=== PATIENT | female | born 1945 | race Caucasian/White ===

== ENCOUNTER 2021-12-25 11:28 | Inpatient (IN) | payer OTHER ==
[~2021-12-25] VITALS: Ht 152.4 cm; Wt 65.7 kg
[2021-12-25 13:30] LABS: Albumin 3.2 g/dL (3.4-5.0); Calcium 8.9 mg/dL (8.5-10.1); Potassium 4.1 mmol/L (3.5-5.1)
[2021-12-25 13:33] LABS: Hematocrit 20.2 % (36.0-46.0); Mean Corpuscular Hemoglobin 34.4 pg (28.0-32.0); Mean Corpuscular Hgb Conc. 34.7 g/dL (32.0-36.0); Mean Corpuscular Volume 99.3 fL (80.0-100.0); Red Blood Cells 2.03 10^6/uL (4.0-5.20)
[2021-12-25 13:36] LABS: BUN/Creatinine Ratio 33.1; Bilirubin, Total 0.9 mg/dL (0.2-1.0); Total Protein 6.7 g/dL (6.4-8.2)
[2021-12-25 13:38] LABS: Red Cell Distribution Width 20.2 % (11.8-14.3); White Blood Cell 1.8 10^3/uL (4.4-10.8)
[2021-12-25 13:41] LABS: Basophils % (manual) 0 (0.0-2.0); Blast Cells 0; Eosinophils % (manual) 0 (0-7); Myelocytes % 0; Reactive Lymphocytes 0
[2021-12-25] MEDS ORDERED: IOHEXOL 300 MG/ML 100ML BOTTLE IJ ONE (14:10)
[2021-12-25 14:56] LABS: Band Neutrophils % (manual) 5; Lymphocytes % (manual) 79 (10.0-50.0); Metamyelocytes % 1; Monocytes % (manual) 10 (0-12); Promyelocytes % 1
[2021-12-25] MEDS ORDERED: SODIUM CHLORIDE 0.9% 1,000 ML IV ONE (20:15)
[2021-12-25] MEDS ORDERED: ACETAMINOPHEN 325 MG TAB PO ONE (20:45)
[2021-12-25 22:06] LABS: INR 1.03 (0.9-1.15)
[2021-12-25] MEDS ORDERED: DOCUSATE SOD 100 MG CAP PO PRN (22:45)
[2021-12-25] MEDS ORDERED: DEXTROSE (50%) 50ML SYRG IV PRN (22:45)
[2021-12-25] MEDS ORDERED: ONDANSETRON HCL 4 MG/2 ML VIAL IV PRN (22:45)
[2021-12-25] MEDS ORDERED: hydrALAZINE HCL 20 MG/ML VL IV PRN (23:15)
[2021-12-26] VITALS (8 sets, daily range): BP systolic 94–124; BP diastolic 36–63
[2021-12-26] MEDS ORDERED: MORPHINE SULFATE INJ 2 MG/ml SYRG IV PRN
[2021-12-26] MEDS ORDERED: NITROGLYCERIN 0.4 MG SL TAB SL PRN
[2021-12-26 01:48] LABS: Urine Bacteria FEW /hpf (None Seen); Urine Blood Negative /uL (Negative); Urine Specific Gravity 1.023 (1.001-1.035); Urine WBC 28 /hpf (0 - 5)
[2021-12-26] MEDS ORDERED: ALBUMIN 25% 100 ML IV ONE (05:30)
[2021-12-26] MEDS: SODIUM CHLOR 0.9% PF (SALINE LOCK) 10ML VIAL/SYR IV SCH ×3 (06:01→22:01)
[2021-12-26 06:18] LABS: Hematocrit 17.2 % (36.0-46.0); Mean Corpuscular Hemoglobin 34.2 pg (28.0-32.0); Mean Corpuscular Hgb Conc. 34.5 g/dL (32.0-36.0); Mean Corpuscular Volume 99.1 fL (80.0-100.0); Red Blood Cells 1.73 10^6/uL (4.0-5.20)
[2021-12-26] MEDS: ACETAMINOPHEN 325 MG TAB PO PRN ×3 (06:21→21:54)
[2021-12-26 06:36] LABS: Hemoglobin 5.9 g/dL (12.2-16.2); Red Cell Distribution Width 20.2 % (11.8-14.3); White Blood Cell 1.6 10^3/uL (4.4-10.8)
[2021-12-26 06:38] LABS: Metamyelocytes % 0; Myelocytes % 0; Promyelocytes % 0; Reactive Lymphocytes 0
[2021-12-26 06:40] LABS: Albumin 2.5 g/dL (3.4-5.0); BUN/Creatinine Ratio 40.2; Calcium 8.6 mg/dL (8.5-10.1); Potassium 3.7 mmol/L (3.5-5.1)
[2021-12-26 06:43] LABS: Bilirubin, Total 0.6 mg/dL (0.2-1.0); Total Protein 6.1 g/dL (6.4-8.2)
[2021-12-26] MEDS: MULTIPLE VITAMIN TAB PO SCH (08:42)
[2021-12-26] MEDS: ACCU-CHEK COMFORT CURVE STRIP VI SCH ×4 (08:46→21:39)
[2021-12-26] MEDS: InsuLIN REG 1unit/0.01ml Soln (100units/ml) SC SCH ×4 (08:47→21:39)
[2021-12-26] MEDS ORDERED: FAMOTIDINE (10MG/ML) 2ML VL IV SCH (10:00)
[2021-12-26] MEDS ORDERED: ASPirin 81 mg TAB PO SCH (10:00)
[2021-12-26] MEDS ORDERED: ASPI325T4 PO (11:00)
[2021-12-26] MEDS ORDERED: ATOR20TA50 PO (11:01)
[2021-12-26] MEDS ORDERED: METF-370 PO ×2 (11:01→16:26)
[2021-12-26] MEDS ORDERED: NICOTINE 21MG/24 HR TOPICAL PATCH TD ONE (12:15)
[2021-12-26 14:52] LABS: % Iron Saturation 35.8 % (15-50)
[2021-12-26 15:04] LABS: Folate (Folic Acid) 14.75 ng/mL (5.38-24)
[2021-12-26 15:35] LABS: Band Neutrophils % (manual) 1; Basophils % (manual) 1 (0.0-2.0); Blast Cells 3; Eosinophils % (manual) 5 (0-7); Lymphocytes % (manual) 77 (10.0-50.0); Monocytes % (manual) 9 (0-12)
[2021-12-26] MEDS ORDERED: ROSU5TAB5 PO (16:26)
[2021-12-26] MEDS ORDERED: CHOL20007 PO (16:26)
[2021-12-26] MEDS ORDERED: CYA100I IM (16:26)
[2021-12-26] MEDS ORDERED: ASCO500T11 PO (16:26)
[2021-12-26] MEDS ORDERED: MULT-688 PO (16:26)
[2021-12-26] MEDS ORDERED: ASPI-543 PO (16:26)
[2021-12-26] MEDS ORDERED: ALBU2TAB4 PO (16:26)
[2021-12-26] MEDS ORDERED: CALC667C PO (16:26)
[2021-12-26] MEDS: PANTOPRAZOLE 40 MG/10 ML VIAL INJ IV SCH (21:53)
[2021-12-27 05:00] VITALS: BP 121/52
[2021-12-27] MEDS: ACCU-CHEK COMFORT CURVE STRIP VI SCH ×4 (06:05→22:00)
[2021-12-27] MEDS: SODIUM CHLOR 0.9% PF (SALINE LOCK) 10ML VIAL/SYR IV SCH ×3 (06:05→22:00)
[2021-12-27] MEDS: InsuLIN REG 1unit/0.01ml Soln (100units/ml) SC SCH ×4 (06:15→22:49)
[2021-12-27 06:25] LABS: Red Blood Cells 2.15 10^6/uL (4.0-5.20)
[2021-12-27 06:27] LABS: Hematocrit 21.2 % (36.0-46.0); Hemoglobin 7.8 g/dL (12.2-16.2); Mean Corpuscular Hemoglobin 36.5 pg (28.0-32.0); Mean Corpuscular Volume 98.5 fL (80.0-100.0); Red Cell Distribution Width 19.3 % (11.8-14.3)
[2021-12-27 06:48] LABS: White Blood Cell 1.5 10^3/uL (4.4-10.8)
[2021-12-27 06:50] LABS: Basophils % (manual) 0 (0.0-2.0); Promyelocytes % 0
[2021-12-27 07:04] LABS: BUN/Creatinine Ratio 30.9; Potassium 3.6 mmol/L (3.5-5.1)
[2021-12-27 08:21] LABS: Band Neutrophils % (manual) 2; Blast Cells 3; Eosinophils % (manual) 2 (0-7); Lymphocytes % (manual) 81 (10.0-50.0); Metamyelocytes % 1; Monocytes % (manual) 6 (0-12); Myelocytes % 1; Reactive Lymphocytes 1
[2021-12-27] MEDS: PANTOPRAZOLE 40 MG/10 ML VIAL INJ IV SCH ×2 (08:29→22:48)
[2021-12-27] MEDS: MULTIPLE VITAMIN TAB PO SCH (08:29)
[2021-12-27] MEDS: NICOTINE 21MG/24 HR TOPICAL PATCH TD SCH (08:30)
[2021-12-27 09:00] VITALS: BP 110/36
[2021-12-27] MEDS: HYDROcodone-ACET 5/325MG TAB PO PRN ×2 (10:14→18:53)
[2021-12-27 13:00] VITALS: BP 100/51
[2021-12-27 17:00] VITALS: BP 115/49
[2021-12-27 22:00] VITALS: BP 105/41
[2021-12-28] VITALS (9 sets, daily range): BP systolic 98–133; BP diastolic 37–68
[2021-12-28] MEDS: SODIUM CHLOR 0.9% PF (SALINE LOCK) 10ML VIAL/SYR IV SCH ×3 (06:24→21:45)
[2021-12-28] MEDS: InsuLIN REG 1unit/0.01ml Soln (100units/ml) SC SCH ×4 (06:24→22:00)
[2021-12-28] MEDS: ACCU-CHEK COMFORT CURVE STRIP VI SCH ×4 (06:25→22:00)
[2021-12-28 06:34] LABS: Hematocrit 19.2 % (36.0-46.0); Mean Corpuscular Hemoglobin 34.6 pg (28.0-32.0); Mean Corpuscular Volume 96.2 fL (80.0-100.0); Red Cell Distribution Width 18.8 % (11.8-14.3)
[2021-12-28 06:44] LABS: Hemoglobin 6.9 g/dL (12.2-16.2); White Blood Cell 1.4 10^3/uL (4.4-10.8)
[2021-12-28 06:45] LABS: Basophils % (manual) 0 (0.0-2.0); Eosinophils % (manual) 0 (0-7); Metamyelocytes % 0; Promyelocytes % 0; Reactive Lymphocytes 0
[2021-12-28 08:14] LABS: Band Neutrophils % (manual) 1; Blast Cells 3; Lymphocytes % (manual) 82 (10.0-50.0); Monocytes % (manual) 4 (0-12); Myelocytes % 4
[2021-12-28] MEDS: MULTIPLE VITAMIN TAB PO SCH (09:08)
[2021-12-28] MEDS: NICOTINE 21MG/24 HR TOPICAL PATCH TD SCH (09:08)
[2021-12-28] MEDS: PANTOPRAZOLE 40 MG/10 ML VIAL INJ IV SCH ×2 (09:08→21:45)
[2021-12-28] MEDS: ACETAMINOPHEN 325 MG TAB PO PRN (21:44)
[2021-12-29] VITALS (10 sets, daily range): BP systolic 109–155; BP diastolic 47–69
[2021-12-29] MEDS: SODIUM CHLOR 0.9% PF (SALINE LOCK) 10ML VIAL/SYR IV SCH ×3 (06:19→22:00)
[2021-12-29] MEDS: ACCU-CHEK COMFORT CURVE STRIP VI SCH ×4 (06:29→22:00)
[2021-12-29] MEDS: InsuLIN REG 1unit/0.01ml Soln (100units/ml) SC SCH ×4 (06:29→22:00)
[2021-12-29 06:38] LABS: Hematocrit 23.8 % (36.0-46.0); Hemoglobin 8.6 g/dL (12.2-16.2); Mean Corpuscular Hemoglobin 33.6 pg (28.0-32.0); Mean Corpuscular Hgb Conc. 35.9 g/dL (32.0-36.0); Mean Corpuscular Volume 93.5 fL (80.0-100.0); Red Blood Cells 2.55 10^6/uL (4.0-5.20); Red Cell Distribution Width 19.4 % (11.8-14.3)
[2021-12-29 06:57] LABS: Band Neutrophils % (manual) 0; Basophils % (manual) 0 (0.0-2.0); Eosinophils % (manual) 0 (0-7); Metamyelocytes % 0; Myelocytes % 0; Promyelocytes % 0; White Blood Cell 1.7 10^3/uL (4.4-10.8)
[2021-12-29 09:12] LABS: Blast Cells 2; Lymphocytes % (manual) 77 (10.0-50.0); Monocytes % (manual) 14 (0-12); Reactive Lymphocytes 1
[2021-12-29] MEDS ORDERED: fentaNYL CITRATE 100 MCG/2 ML VL IV ONE (09:45)
[2021-12-29] MEDS ORDERED: MIDAZOLAM HCL 2MG/2ML 2ml VIAL (1mg/ml) IV ONE (09:45)
[2021-12-29] MEDS: NICOTINE 21MG/24 HR TOPICAL PATCH TD SCH (12:27)
[2021-12-29] MEDS: MULTIPLE VITAMIN TAB PO SCH (12:27)
[2021-12-29] MEDS: HYDROcodone-ACET 5/325MG TAB PO PRN (20:29)
[2021-12-30] MEDS: HYDROcodone-ACET 5/325MG TAB PO PRN (02:17)
[2021-12-30 05:00] VITALS: BP 109/60
[2021-12-30] MEDS: SODIUM CHLOR 0.9% PF (SALINE LOCK) 10ML VIAL/SYR IV SCH ×3 (06:00→21:59)
[2021-12-30] MEDS: InsuLIN REG 1unit/0.01ml Soln (100units/ml) SC SCH ×4 (06:03→21:58)
[2021-12-30] MEDS: ACCU-CHEK COMFORT CURVE STRIP VI SCH ×4 (06:35→21:59)
[2021-12-30 07:17] LABS: Hematocrit 23.9 % (36.0-46.0); Mean Corpuscular Hgb Conc. 34.9 g/dL (32.0-36.0); Red Blood Cells 2.54 10^6/uL (4.0-5.20)
[2021-12-30 07:21] LABS: Hemoglobin 8.3 g/dL (12.2-16.2); Mean Corpuscular Hemoglobin 32.8 pg (28.0-32.0); Mean Corpuscular Volume 93.9 fL (80.0-100.0); Red Cell Distribution Width 18.7 % (11.8-14.3)
[2021-12-30 07:34] LABS: White Blood Cell 1.5 10^3/uL (4.4-10.8)
[2021-12-30 07:35] LABS: Band Neutrophils % (manual) 0; Basophils % (manual) 0 (0.0-2.0); Eosinophils % (manual) 0 (0-7); Metamyelocytes % 0; Myelocytes % 0; Promyelocytes % 0
[2021-12-30 07:43] LABS: BUN/Creatinine Ratio 26.3; Potassium 4.2 mmol/L (3.5-5.1)
[2021-12-30 08:33] LABS: Blast Cells 8; Lymphocytes % (manual) 60 (10.0-50.0); Monocytes % (manual) 24 (0-12); Reactive Lymphocytes 4
[2021-12-30 09:00] VITALS: BP 114/58
[2021-12-30] MEDS: MULTIPLE VITAMIN TAB PO SCH (09:26)
[2021-12-30] MEDS: NICOTINE 21MG/24 HR TOPICAL PATCH TD SCH (09:27)
[2021-12-30] MEDS: PANTOPRAZOLE 40 MG TAB PO SCH (09:27)
[2021-12-30 13:00] VITALS: BP 118/60
[2021-12-30 17:00] VITALS: BP 127/50
[2021-12-31 01:45] VITALS: BP 122/60
[2021-12-31 05:51] VITALS: BP 122/63
[2021-12-31] MEDS: SODIUM CHLOR 0.9% PF (SALINE LOCK) 10ML VIAL/SYR IV SCH (06:09)
[2021-12-31] MEDS: ACCU-CHEK COMFORT CURVE STRIP VI SCH ×2 (06:28→11:53)
[2021-12-31] MEDS: InsuLIN REG 1unit/0.01ml Soln (100units/ml) SC SCH ×2 (06:28→11:30)
[2021-12-31 09:00] VITALS: BP 146/59
[2021-12-31] MEDS ORDERED: TRETINOIN (CHEMOTHERAPY) 10 MG CAP PO SCH (10:00)
[2021-12-31] MEDS: MULTIPLE VITAMIN TAB PO SCH (10:56)
[2021-12-31] MEDS: PANTOPRAZOLE 40 MG TAB PO SCH (10:56)
[2021-12-31] MEDS: NICOTINE 21MG/24 HR TOPICAL PATCH TD SCH (10:57)
[2021-12-31 11:26] VITALS: BP 146/59
== END 2021-12-31 12:25 | disposition short-term general hospital (02) | DRG 835 ==
LOC: ER 11:28 → TELE 23:57 → TELE-WESTW 12-26 06:24
PROVIDERS: ADMIT Nurse Practitioner Family; ATTEND Internal Medicine
PROC: 30233N1 Transfusion of Nonautologous Red Blood Cells into Peripheral Vein, Percutaneous Approach (ICD-10-PCS; 2021-12-25)
PROC: 07DR3ZX Extraction of Iliac Bone Marrow, Percutaneous Approach, Diagnostic (ICD-10-PCS; principal; 2021-12-29)
DX: C92.40 Acute promyelocytic leukemia, not having achieved remission (principal); D61.818 Other pancytopenia; N17.9 Acute kidney failure, unspecified; E44.0 Moderate protein-calorie malnutrition; E88.09 Other disorders of plasma-protein metabolism, not elsewhere classified; R63.4 Abnormal weight loss; N28.9 Disorder of kidney and ureter, unspecified; E11.9 Type 2 diabetes mellitus without complications; I10 Essential (primary) hypertension; J44.9 Chronic obstructive pulmonary disease, unspecified; Z20.822 Contact with and (suspected) exposure to COVID-19; Z72.0 Tobacco use; Z80.3 Family history of malignant neoplasm of breast; Z71.6 Tobacco abuse counseling
CPT/HCPCS: 10005; 36415; 70450; 71045; 71250; 72125; 74177; 77012; 80048; 80053; 81001; 82607; 82746; 82962; 83010; 83036; 83540; 83550; 83605; 84436; 84443; 84484; 85007; 85027; 85045; 85610; 86850; 86870; 86880; 86900; 86901; 86905; 86906; 86922; 86971; 87426; 93005; 96365; 96366; C9113; G0378; J1815; J2250; J3490; P9047